=== PATIENT | male | born 1965 | race African-American/Black ===

== ENCOUNTER 2016-09-03 09:24 | Emergency (ER) | payer BC ==
--- NOTE | 2016-09-03 12:40 | ER Document Report ---
ED Hip Pain/Injury - General Mode of Arrival: Ambulatory Information source: Patient TRAVEL OUTSIDE OF THE [place] IN LAST 30 DAYS: No - HPI Patient complains to provider of: Pain Occurred: Other - 1 week ago Context: No trauma Associated Symptoms: Other - see above - General Chief Complaint: Hip Pain Stated Complaint: HIP PAIN Notes: 50-year-old male with history of hypertension, diabetes, and degenerative disc disease presents to the ED complaining of right hip pain that started 1 week ago. Patient denies fall or any other trauma or injury to the hip. Patient explains that the pain is no reproducible with palpation, but instead with manual manipulation of the right leg. Patient reports that he has recently changed to "flatter" shoes and noticed the pain started soon after. Patient states that he has difficulty walking secondary to this pain. Patient denies nausea, vomiting, diarrhea, or abdominal pain. Patient denies history of GI bleeds or ulcers. Patient works as a cable operator and states that he is often sitting for hours during work. Patient receives primary care at [facility] and has a follow up appointment tomorrow. (LYN LUDWIG) - Related Data Allergies/Adverse Reactions: No Known Allergies Allergy (Unverified 09/03/16 09:56) Past Medical History - General Information source: Patient - Social History Smoking Status: Never Smoker Chew tobacco use (# tins/day): Yes Frequency of alcohol use: None Drug Abuse: None Family History: Reviewed & Not Pertinent Patient has suicidal ideation: No Patient has homicidal ideation: No - Past Medical History Cardiac Medical History: Reports: Hx Hypertension Endocrine Medical History: Reports: Hx Diabetes Mellitus Type 2 Renal/ Medical History: Denies: Hx Peritoneal Dialysis GI Medical History: Denies: Hx Ulcer Musculoskeltal Medical History: Reports Other - Degenerative disc disease Review of Systems - Review of Systems Constitutional: No symptoms reported EENT: No symptoms reported Cardiovascular: No symptoms reported Respiratory: No symptoms reported Gastrointestinal: No symptoms reported. denies: Abdominal pain, Diarrhea, Nausea, Vomiting Genitourinary: No symptoms reported Male Genitourinary: No symptoms reported Musculoskeletal: See HPI, Other - right hip pain Skin: No symptoms reported Hematologic/Lymphatic: No symptoms reported Neurological/Psychological: No symptoms reported -: Yes All other systems reviewed and negative Physical Exam - General General appearance: Alert In distress: None - HEENT Head: Normocephalic, Atraumatic Eyes: Normal Extraocular movements intact: Yes Pupils: PERRL - Respiratory Respiratory status: No respiratory distress Breath sounds: Normal - Cardiovascular Rhythm: Regular Heart sounds: Normal auscultation Pulses: Normal: Popliteal, Posterior tibial, Dorsalis pedis - Abdominal Inspection: Normal Distension: No distension Tenderness: Nontender - Back Back: Normal - Extremities General upper extremity: Normal inspection, Normal ROM General lower extremity: No: Normal inspection - see hip exam below Hip: Tender - Right hip pain is reproducible with a right straight leg raise, but not with palpation.. No: Normal - Neurological Neuro grossly intact: Yes Cognition: Normal Orientation: AAOx4 [place] Coma Scale Eye Opening: Spontaneous [place] Coma Scale Verbal: Oriented [place] Coma Scale Motor: Obeys Commands [place] Coma Scale Total: 15 Speech: Normal Additional motor exam normals: Other - positive right straight leg raise - Psychological Associated symptoms: Normal affect, Normal mood - Skin Skin Temperature: Warm Skin Moisture: Dry Skin Color: Normal - Vital signs Vitals: Temp Pulse Resp BP Pulse Ox 98.5 F 73 20 174/92 H 99 09/03/16 09:33 09/03/16 09:33 09/03/16 09:33 09/03/16 09:33 09/03/16 09:33 Temp Pulse Resp BP Pulse Ox 98.5 F 73 20 174/92 H 99 09/03/16 09:33 09/03/16 09:33 09/03/16 09:33 09/03/16 09:33 09/03/16 09:33 (LYN LUDWIG) Discharge - Discharge Clinical Impression: Arthralgia of hip Condition: Stable Disposition: HOME, SELF-CARE Additional Instructions: Sprain Your injury is a sprain. A sprain results from stretching or tearing of the ligaments, usually from a twisting injury. The ligaments will require time and protection in order to heal properly. Many sprains are quite disabling and should be taken seriously. The usual initial treatment of sprains is cold packs, elevation, and rest of the injured area. Your physician has assessed the seriousness of your ligament injury, and has outlined a treatment plan. Understand that this treatment may change, depending on how you progress. If a re-examination was recommended, it is important that you follow up as instructed. Call the doctor any time if there is severe pain, numbness, or loss of function in the injured area. Prescriptions: Hydrocodone/Acetaminophen [[place] 5-325 mg Tabs #6 ER Disp] 6 tab PO QID #6 dspk Hydrocodone/Acetaminophen [[place] 5-325 mg Tablet] 1 tab PO TID #6 tablet
[2016-09-03 12:53] VITALS: BP 149/93
== END 2016-09-03 12:52 | disposition home or self-care (01) ==
LOC: ER 09:24
DX: M25.551 Pain in right hip (principal); I10 Essential (primary) hypertension; E11.9 Type 2 diabetes mellitus without complications
CPT/HCPCS: 99283